=== PATIENT | female | born 1990 | race Two or more races ===

== ENCOUNTER → 2017-01-08 | Outpatient (CLI) | payer BC, MEDICAID ==
[~2017-01-08] MED LIST: PANT40TA2 PO; SUC1LQ PO
== END | disposition home or self-care (01) ==
LOC: LAB 10:00
PROVIDERS: ATTEND Obstetrics & Gynecology
DX: R87.612 Low grade squamous intraepithelial lesion on cytologic smear of cervix (LGSIL) (principal)
CPT/HCPCS: 88341

== ENCOUNTER 2017-02-06 06:58 | Emergency (ER) | payer BC, MEDICAID ==
[~2017-02-06] VITALS: Ht 175.3 cm; Wt 75.7 kg
[2017-02-06 07:15] VITALS: BP 130/69
[2017-02-06] MEDS ORDERED: methylPREDNISolone SOD SUCC 125 MG/2 ML VL IM ONE (07:30)
[2017-02-06] MEDS ORDERED: diphenhdrAMINE HCL 25 MG CAP PO ONE (08:00)
== END 2017-02-06 08:23 | disposition home or self-care (01) ==
LOC: ER 06:58
DX: T78.40XA Allergy, unspecified, initial encounter (principal); R22.0 Localized swelling, mass and lump, head
CPT/HCPCS: 96372; 99283; J2930

== ENCOUNTER 2017-12-26 10:42 | Emergency (ER) | payer BC, MEDICAID, OTHER ==
[~2017-12-26] VITALS: Ht 175.3 cm; Wt 79.4 kg
[~2017-12-26 10:42] MED LIST changes: -SUC1LQ PO; +SUCR1SUS10 PO
[2017-12-26 11:09] VITALS: BP 124/72
[2017-12-26 13:00] LABS: Hepatitis B Surface Antibody Positive
[2017-12-26 13:11] LABS: Hepatitis B Surface Antigen Negative (Negative)
== END 2017-12-26 12:05 | disposition home or self-care (01) ==
LOC: ER 10:42
DX: S61.237A Puncture wound without foreign body of left little finger without damage to nail, initial encounter (principal); Z90.49 Acquired absence of other specified parts of digestive tract; W46.0XXA Contact with hypodermic needle, initial encounter; Y93.89 Activity, other specified; Y92.89 Other specified places as the place of occurrence of the external cause; Y99.8 Other external cause status
CPT/HCPCS: 36415; 86703; 86706; 86803; 87340

== ENCOUNTER → 2018-06-24 | Outpatient (CLI) | payer BC ==
[2018-06-24 12:27] LABS: Urine Bacteria NONE SEEN /hpf (None Seen); Urine Blood Negative /uL (Negative); Urine Specific Gravity 1.003 (1.001-1.035); Urine WBC <1 /hpf (0 - 5)
[2018-06-24 12:32] LABS: Basophils # (auto) 0 uL; Basophils % (auto) 0.6 % (0.0-2.0); Eosinophils # (auto) 0.1 uL; Eosinophils % (auto) 1.9 % (0.0-7.0); Hematocrit 40.2 % (36.0-46.0); Hemoglobin 13.6 g/dL (12.2-16.2); Mean Corpuscular Hemoglobin 30.6 pg (28.0-32.0); Mean Corpuscular Hgb Conc. 33.8 g/dL (32.0-36.0); Mean Corpuscular Volume 90.5 fL (80.0-100.0); Monocytes # (auto) 0.3 uL; Neutrophils # (auto) 3.6 uL; Neutrophils % (auto) 59.5 % (37.0-80.0); Nucleated Red Blood Cells % 0.1 %; Platelet Count (auto) 211 10^3/uL (140-450); Red Blood Cells 4.44 10^6/uL (4.0-5.20); Red Cell Distribution Width 12.8 % (11.8-14.3); White Blood Cell 6.1 10^3/uL (4.4-10.8)
[2018-06-24 13:10] LABS: Albumin 4.2 g/dL (3.4-5.0); BUN/Creatinine Ratio 8.3; Bilirubin, Total 0.7 mg/dL (0.2-1.0); Calcium 8.8 mg/dL (8.5-10.1); Potassium 3.9 mmol/L (3.5-5.1); Total Protein 8.1 g/dL (6.4-8.2)
[2018-06-24 14:49] LABS: Hepatitis B Surface Antibody Positive
[2018-06-24 15:38] LABS: Hepatitis A Ab IgM Negative; Hepatitis B Core IgM Negative
[2018-06-24 15:40] LABS: Hepatitis B Core Total AB Negative
[2018-06-26 22:04] LABS: Hepatitis B Surface Antigen Negative (Negative)
== END | disposition home or self-care (01) ==
LOC: LAB 11:36
PROVIDERS: ATTEND Internal Medicine
DX: K21.9 Gastro-esophageal reflux disease without esophagitis (principal); X58.XXXA Exposure to other specified factors, initial encounter; Y93.89 Activity, other specified; Y92.89 Other specified places as the place of occurrence of the external cause; Y99.8 Other external cause status
CPT/HCPCS: 36415; 80053; 80061; 81001; 82306; 84439; 84443; 85025; 85652; 86592; 86703; 86704; 86705; 86706; 86709; 86803; 87340

== ENCOUNTER 2019-06-23 12:23 | Emergency (ER) | payer BC, MEDICAID ==
[~2019-06-23] VITALS: Ht 175.3 cm; Wt 74.8 kg
[2019-06-23 13:09] VITALS: BP 138/74
== END 2019-06-23 16:51 | disposition home or self-care (01) ==
LOC: ER 12:23
DX: S93.402A Sprain of unspecified ligament of left ankle, initial encounter (principal); X50.1XXA Overexertion from prolonged static or awkward postures, initial encounter; Y93.89 Activity, other specified; Y92.89 Other specified places as the place of occurrence of the external cause; Y99.8 Other external cause status
CPT/HCPCS: 73700; 99284; L3260